=== PATIENT | female | born 1965 | race Asian ===

== ENCOUNTER 2018-02-06 11:00 | Emergency (ER) | payer MEDICAID ==
[~2018-02-06] VITALS: Ht 157.5 cm; Wt 52.6 kg
[2018-02-06 11:14] VITALS: BP 128/83
--- NOTE | 2018-02-06 11:20 | NUR ---
PT AMBULATES TO BED 2
--- NOTE | 2018-02-06 11:25 | NUR ---
PATIENT PRESENTS TO ED WITH C/O COUGH WITH RT UPPER BACK PAIN X 3 DAYS; DENIES NVD HX; DM, HTN . PATIENT STATES PAIN OF 5/10 AT THIS TIME; VSS; PATIENT POSITIONED FOR COMFORT; HOB ELEVATED; BEDRAILS UP X2; BED DOWN. ER MD MADE AWARE OF PT STATUS.
--- NOTE | 2018-02-06 11:30 | NUR ---
Patient being evaluated by physician at bedside.
--- NOTE | 2018-02-06 11:48 | NUR ---
FLU SWAB DONE, PUT IN SPECIMEN CONTAINER IN ER
[2018-02-06 11:55] VITALS: BP 126/81
--- NOTE | 2018-02-06 11:55 | NUR ---
Patient discharged with v/s stable. Written and verbal after care instructions given and explained. Patient alert, oriented and verbalized understanding of instructions. Ambulatory with steady gait. All questions addressed prior to discharge. ID band removed. Patient advised to follow up with PMD. Rx of NAPROSYN, TAMIFLU, ZOFRAN given. Patient educated on indication of medication including possible reaction and side effects. Opportunity to ask questions provided and answered.
== END 2018-02-06 11:55 | disposition home or self-care (01) ==
LOC: MED 11:00
DX: B34.9 Viral infection, unspecified (principal); E11.9 Type 2 diabetes mellitus without complications
CPT/HCPCS: 36415; 71045; 87804; 99285; Q0092